=== PATIENT | male | born 1990 | race Caucasian/White ===

== ENCOUNTER → 2018-04-01 | Emergency (ER) | payer SELFPAY ==
[~2018-04-01] MED LIST: ASPIRIN 300 MG SUPP PR ONE; DIAZEPAM 50 MG/10 ML MDV IVP ONE; EMS NS 0.9%(*) 1000 ML BAG 1,000 ML IV ONE; THIAMINE HCL(*) 200 MG/2 ML IN 100 MG, FOLIC ACID(*) 50 MG/10 ML INJ 1 MG, MULTIVITAMIN... IV ONE
--- NOTE | 2018-04-01 11:08 | ER Report ---
History and Physical Time Seen By MD: 11:08 ANJALI/ANGELIC CHIEF COMPLAINT: Altered mental status HISTORY OF PRESENT ILLNESS: 28-year-old male patient presents to emergency room with complaint of altered mental status. Patient has been lost in the wound for several days. At this time we're unsure exactly how long. Patient was found by [employer] [facility] office and brought into the emergency room by EMS. Patient had his family doing a wellness check earlier this week. 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 Patient does respond to painful stimuli, and does state "Hello" and "okay". REVIEW OF SYSTEMS: Unable to review due to patient being unable to answer questions. Past Medical/Surgical History Unable to obtain from patient Reviewed Nurses Notes: Yes Constitutional Vital Sign - Last 24 Hours 04/01/18 04/01/18 04/01/18 04/01/18 11:08 11:10 11:30 11:31 Temp 99.0 Pulse 104 103 Resp 18 17 B/P (MAP) 185/80 (115) 185/80 170/99 (122) Pulse Ox 97 O2 Delivery Room Air 04/01/18 04/01/18 04/01/18 04/01/18 12:00 12:01 12:30 12:30 Pulse 96 115 Resp 14 17 B/P (MAP) 160/99 (119) 173/101 (125) 173/101 (125) Pulse Ox 94 04/01/18 04/01/18 04/01/18 04/01/18 12:31 12:35 12:40 12:45 Pulse 108 103 105 118 Resp 14 15 14 22 Pulse Ox 93 96 100 96 04/01/18 04/01/18 04/01/18 04/01/18 12:50 12:55 13:00 13:05 Pulse ? 115 103 Resp 15 14 16 17 B/P (MAP) 167/94 (118) Pulse Ox 77 94 95 04/01/18 04/01/18 04/01/18 04/01/18 13:10 13:15 13:20 13:25 Pulse 110 101 103 101 Resp 15 14 12 16 Pulse Ox 95 95 94 94 04/01/18 04/01/18 04/01/18 04/01/18 13:30 14:00 14:30 15:00 Pulse 101 105 108 106 Resp 18 15 15 15 B/P (MAP) 153/71 (98) 166/103 (124) 170/97 (121) 173/91 (118) Pulse Ox 94 96 95 95 04/01/18 04/01/18 04/01/18 04/01/18 15:05 15:30 15:35 15:51 Pulse 101 107 Resp 12 16 B/P (MAP) 163/98 (119) 164/102 (122) Pulse Ox 96 94 04/01/18 04/01/18 16:00 16:05 Pulse 98 Resp 15 B/P (MAP) 169/103 (125) Pulse Ox 95 Intake and Output 04/01/18 04/01/18 04/02/18 15:00 23:00 07:00 Intake Total 2000 ml 200 ml Output Total 1200 ml Balance 2000 ml -1000 ml Physical Exam General Appearance: The patient is somnolent, has no immediate need for airway protection and no current signs of toxicity. Eyes: Pupils equal and round no injection, eyes open spontaneously. Respiratory: Chest is non tender, lungs are clear to auscultation. Cardiac: regular rhythm. Patient is tachycardic with image rate of one 4 bpm Gastrointestinal: Abdomen is soft and non tender, no masses, bowel sounds normal. Musculoskeletal: Neck: Neck is supple and non tender. Extremities have full range of motion and are non tender. Skin: No rashes or lesions. Diffuse sunburn over the majority of his body, the only area that this is not covered by sunburn is that protected by his underwear. Feet are dirty. Neuro: Patient already responded to questions with an "okay" or "hello". Patient was moving around. DIFFERENTIAL DIAGNOSIS: After history and physical exam differential diagnosis was considered for altered mental status including but not limited to hypoglycemia, infectious process, electrolyte abnormality, head injury and intoxicants. Medical Decision Making Data Points Result Diagram: 04/01/18 1100 04/01/18 1100 Laboratory Hematology Test 04/01/18 11:00 04/01/18 11:53 04/01/18 12:44 04/01/18 13:56 Red Blood Count 4.70 M/uL (4.00-5.60) Mean Corpuscular Volume 95.2 fL (80.0-96.0) Mean Corpuscular Hemoglobin 33.2 pg (26.0-33.0) Mean Corpuscular Hemoglobin Concent 34.9 g/dL (32.0-36.0) Red Cell Distribution Width 13.3 % (11.5-14.5) Mean Platelet Volume 10.1 fL (7.2-11.1) Neutrophils (%) (Auto) 87.6 % (39.4-72.5) Lymphocytes (%) (Auto) 3.2 % (17.6-49.6) Monocytes (%) (Auto) 9.1 % (4.1-12.4) Eosinophils (%) (Auto) 0.0 % (0.4-6.7) Basophils (%) (Auto) 0.1 % (0.3-1.4) Nucleated RBC Relative Count (auto) 0.0 /100WBC Neutrophils # (Auto) 14.3 K/uL (2.0-7.4) Lymphocytes # (Auto) 0.5 K/uL (1.3-3.6) Monocytes # (Auto) 1.5 K/uL (0.3-1.0) Eosinophils # (Auto) 0.0 K/uL (0.0-0.5) Basophils # (Auto) 0.0 K/uL (0.0-0.1) Nucleated RBC Absolute Count (auto) 0.00 K/uL Prothrombin Time 14.5 seconds (12.0-14.4) Prothromb Time International Ratio 1.12 Activated Partial Thromboplast Time 29 seconds (23-35) Sodium Level 135 mmol/L (137-145) Potassium Level 3.8 mmol/L (3.5-5.0) Chloride Level 95 mmol/L (98-107) Carbon Dioxide Level 15 mmol/L (22-30) Blood Urea Nitrogen 53 mg/dl (9-21) Creatinine 1.20 mg/dl (0.66-1.25) Glomerular Filtration Rate Calc > 60.0 Random Glucose 85 mg/dl (75-110) Calcium Level 10.0 mg/dl (8.4-10.2) Total Bilirubin 1.1 mg/dl (0.2-1.3) Aspartate Amino Transf (AST/SGOT) 276 U/L (0-35) Alanine Aminotransferase (ALT/SGPT) 108 U/L (0-56) Alkaline Phosphatase 112 U/L (0-126) Lactate Dehydrogenase 1778 U/L (0-654) Total Creatine Kinase 6310 U/L (55-170) Creatine Kinase MB 226 U/L Creatine Kinase MB % 4 % Total Protein 7.7 gm/dl (6.3-8.2) Albumin 4.7 g/dl (3.5-5.0) Serum Alcohol < 10 mg/dl Urine Color Yellow Urine Clarity Clear Urine pH 5.0 pH (4.8-9.5) Urine Specific [place] 1.023 Urine Protein 30 mg/dL (NEGATIVE) Urine Glucose (UA) Negative mg/dL (NEGATIVE) Urine Ketones 80 mg/dL (NEGATIVE) Urine Blood Large (NEGATIVE) Urine Nitrite Negative (NEGATIVE) Urine Bilirubin Negative (NEGATIVE) Urine Urobilinogen Negative mg/dL (0.2-1.9) Urine Leukocyte Esterase Negative (NEGATIVE) Urine RBC 1 /HPF (0-2/HPF) Urine WBC 1 /HPF (0-5/HPF) Urine Squamous Epithelial Cells None /LPF (NONE-FEW) Urine Bacteria Negative /HPF (NONE-FEW) Urine Hyaline Casts Few /LPF (NONE-FEW) Urine Mucus None /HPF (NONE-FEW) Urine Opiates Screen Positive Urine Barbiturates Screen Negative Ur Tricyclic Antidepressants Screen Negative Urine Phencyclidine Screen Negative Urine Amphetamines Screen Positive Urine Benzodiazepines Screen Negative Urine Cocaine Screen Negative Urine Cannabinoids Screen Negative Blood Gas Puncture Site Left radial Blood Gas Patient Temperature 99.0 DEGREES Arterial Blood pH 7.40 (7.35-7.45) Arterial Blood Partial Pressure CO2 < 25 mmHg (32-37) Arterial Blood Partial Pressure O2 61 mmHg (60-80) Arterial Blood HCO3 13 mmol/L (20-26) Arterial Blood Oxygen Saturation 92 % (92-100) Arterial Blood Base Excess -12.0 mmol/L Mauricio Test Acceptable Oxygen Liters/Minute Room air Lactate 1.3 mmol/L (0.7-2.1) Ammonia 16 UMOL/L (9-33) Troponin I 0.137 ng/ml Chemistry Test 04/01/18 11:00 04/01/18 11:53 04/01/18 12:44 04/01/18 13:56 White Blood Count 16.3 k/uL (4.5-11.0) Red Blood Count 4.70 M/uL (4.00-5.60) Hemoglobin 15.6 g/dL (14.0-18.0) Hematocrit 44.7 % (42.0-52.0) Mean Corpuscular Volume 95.2 fL (80.0-96.0) Mean Corpuscular Hemoglobin 33.2 pg (26.0-33.0) Mean Corpuscular Hemoglobin Concent 34.9 g/dL (32.0-36.0) Red Cell Distribution Width 13.3 % (11.5-14.5) Platelet Count 345 K/uL (150-450) Mean Platelet Volume 10.1 fL (7.2-11.1) Neutrophils (%) (Auto) 87.6 % (39.4-72.5) Lymphocytes (%) (Auto) 3.2 % (17.6-49.6) Monocytes (%) (Auto) 9.1 % (4.1-12.4) Eosinophils (%) (Auto) 0.0 % (0.4-6.7) Basophils (%) (Auto) 0.1 % (0.3-1.4) Nucleated RBC Relative Count (auto) 0.0 /100WBC Neutrophils # (Auto) 14.3 K/uL (2.0-7.4) Lymphocytes # (Auto) 0.5 K/uL (1.3-3.6) Monocytes # (Auto) 1.5 K/uL (0.3-1.0) Eosinophils # (Auto) 0.0 K/uL (0.0-0.5) Basophils # (Auto) 0.0 K/uL (0.0-0.1) Nucleated RBC Absolute Count (auto) 0.00 K/uL Prothrombin Time 14.5 seconds (12.0-14.4) Prothromb Time International Ratio 1.12 Activated Partial Thromboplast Time 29 seconds (23-35) Glomerular Filtration Rate Calc > 60.0 Calcium Level 10.0 mg/dl (8.4-10.2) Total Bilirubin 1.1 mg/dl (0.2-1.3) Aspartate Amino Transf (AST/SGOT) 276 U/L (0-35) Alanine Aminotransferase (ALT/SGPT) 108 U/L (0-56) Alkaline Phosphatase 112 U/L (0-126) Lactate Dehydrogenase 1778 U/L (0-654) Total Creatine Kinase 6310 U/L (55-170) Creatine Kinase MB 226 U/L Creatine Kinase MB % 4 % Total Protein 7.7 gm/dl (6.3-8.2) Albumin 4.7 g/dl (3.5-5.0) Serum Alcohol < 10 mg/dl Urine Color Yellow Urine Clarity Clear Urine pH 5.0 pH (4.8-9.5) Urine Specific [place] 1.023 Urine Protein 30 mg/dL (NEGATIVE) Urine Glucose (UA) Negative mg/dL (NEGATIVE) Urine Ketones 80 mg/dL (NEGATIVE) Urine Blood Large (NEGATIVE) Urine Nitrite Negative (NEGATIVE) Urine Bilirubin Negative (NEGATIVE) Urine Urobilinogen Negative mg/dL (0.2-1.9) Urine Leukocyte Esterase Negative (NEGATIVE) Urine RBC 1 /HPF (0-2/HPF) Urine WBC 1 /HPF (0-5/HPF) Urine Squamous Epithelial Cells None /LPF (NONE-FEW) Urine Bacteria Negative /HPF (NONE-FEW) Urine Hyaline Casts Few /LPF (NONE-FEW) Urine Mucus None /HPF (NONE-FEW) Urine Opiates Screen Positive Urine Barbiturates Screen Negative Ur Tricyclic Antidepressants Screen Negative Urine Phencyclidine Screen Negative Urine Amphetamines Screen Positive Urine Benzodiazepines Screen Negative Urine Cocaine Screen Negative Urine Cannabinoids Screen Negative Blood Gas Puncture Site Left radial Blood Gas Patient Temperature 99.0 DEGREES Arterial Blood pH 7.40 (7.35-7.45) Arterial Blood Partial Pressure CO2 < 25 mmHg (32-37) Arterial Blood Partial Pressure O2 61 mmHg (60-80) Arterial Blood HCO3 13 mmol/L (20-26) Arterial Blood Oxygen Saturation 92 % (92-100) Arterial Blood Base Excess -12.0 mmol/L Mauricio Test Acceptable Oxygen Liters/Minute Room air Lactate 1.3 mmol/L (0.7-2.1) Ammonia 16 UMOL/L (9-33) Troponin I 0.137 ng/ml Coagulation Test 04/01/18 11:00 Prothrombin Time 14.5 seconds Prothromb Time International Ratio 1.12 Activated Partial Thromboplast Time 29 seconds Toxicology Test 04/01/18 11:00 04/01/18 11:53 Serum Alcohol < 10 mg/dl Urine Opiates Screen Positive Urine Barbiturates Screen Negative Ur Tricyclic Antidepressants Screen Negative Urine Phencyclidine Screen Negative Urine Amphetamines Screen Positive Urine Benzodiazepines Screen Negative Urine Cocaine Screen Negative Urine Cannabinoids Screen Negative Urinalysis Test 04/01/18 11:53 Urine Color Yellow Urine Clarity Clear Urine pH 5.0 pH (4.8-9.5) Urine Specific [place] 1.023 Urine Protein 30 mg/dL (NEGATIVE) Urine Glucose (UA) Negative mg/dL (NEGATIVE) Urine Ketones 80 mg/dL (NEGATIVE) Urine Blood Large (NEGATIVE) Urine Nitrite Negative (NEGATIVE) Urine Bilirubin Negative (NEGATIVE) Urine Urobilinogen Negative mg/dL (0.2-1.9) Urine Leukocyte Esterase Negative (NEGATIVE) Urine RBC 1 /HPF (0-2/HPF) Urine WBC 1 /HPF (0-5/HPF) Urine Squamous Epithelial Cells None /LPF (NONE-FEW) Urine Bacteria Negative /HPF (NONE-FEW) Urine Hyaline Casts Few /LPF (NONE-FEW) Urine Mucus None /HPF (NONE-FEW) EKG/Imaging EKG Interpretation 12 lead EKG: Rhythm: Sinus tachycardia [place]: normal QRS: Left ventricular hypertrophy, incomplete right bundle branch block ST segments: normal Imaging INDICATION: lost in [place] for 10 days. Reportedly lost in the [place] for 10 days. DATE: 04/01/2018 12:45 PM. TECHNIQUE: CHEST SINGLE AP COMPARISON: None FINDINGS: Heart size is normal. No effusion, consolidation, or pneumothorax. Normal expansion. IMPRESSION: No acute findings. Report Dictated By: Desmond Young MD at 04/01/2018 12:45 PM Report E-Signed By: Desmond Young MD at 04/01/2018 12:48 PM ED Course/Re-evaluation ED Course Patient was admitted to exam room, history and physical were obtained. Differential diagnoses were considered. On examination patient would respond to only a few questions. His response was "hello" and "okay". Patient has significant sunburn over the majority of his body, biliary but does not sunburn his ear protected by his underwear. Patient has an elevated heart rate approximately 104 bpm. A CBC, CMP, troponin, EKG, chest x-ray, CT scan of the head, alcohol level, drug screen, urinalysis were done. CBC showed an elevated white count of 16,000, patient had a low sodium, low chloride, elevated liver enzymes, elevated BUN, troponin was positive at 0.15, EKG showed a sinus tachycardia with right bundle branch block and left ventricular hypertrophy. Chest x-ray showed no acute cardiopulmonary processes, alcohol level is negative , drug treatment was positive for methamphetamines as well as opiates. Urinalysis showed large blood, only one red blood cell. A CPK was done which was elevated at 6100. Due to the elevated troponin a CPK-MB was done which was at 4%. In discussing the case that it was this patient could very well have ingested mushrooms which were poisonous. I discussed the case with Dr. Oliva, hospitalist at [facility], who agreed to accept the patient for admission. At the time of this dictation we are still waiting for the CT scan of the head to be read as well as an echocardiogram to be officially. Dr. Oliva did request that I speak with poison control. They were contacted, case number is [id number], and they recommended supportive treatment for possible ingestion of a poisonous mushroom. After discussing the case with Dr. Oliva the police did arrive, they have spoke with the patient's mother. Apparently he has a drug history and heroin and methamphetamines are his drugs of choice. He also had an episode where he was running around [place] 3 months ago wearing just his underwear jumping on cars. There is concerned that this may be a psychosis related to that. They believe that [place] The last time they know that he was seen was on Saturday, which time he was pacing around the hotel in which he was staying. Still with the elevated troponin I believe the patient is necessitating transfer to a higher level of care. Dr. Oliva was contacted and informed of the results of the repeat troponin as well as the updated history. I did speak with the patient's mother, Viktoriya Gray [phone], who verbalized understanding and agreement with plan to transfer patient. Decision to Disposition Date: Apr 01, 2018 Decision to Disposition Time: 13:34 Depart Departure Latest Vital Signs Vital Signs Date Time Temp Pulse Resp B/P (MAP) Pulse Ox O2 Delivery O2 Flow Rate FiO2 04/01/18 16:05 98 15 95 04/01/18 16:00 169/103 (125) 04/01/18 11:10 99.0 Room Air Impression: Primary Impression: Altered mental status Additional Impressions: Elevated troponin Elevated liver enzymes Dehydration Condition: Condition Unchanged Disposition: XFER TO [facility] Problem Qualifiers Primary Impression: Altered mental status Altered mental status type: phil Qualified Codes: R40.1 - BENSON Kwong Apr 01, 2018 11:08
[2018-04-01] MEDS: NS(*) 0.9% 1000 ML BAG 1,000 ML IV ONE ×2 (11:25→16:00)
[2018-04-01 11:49] LABS: PLATELET COUNT, AUTOMATED 345 K/uL (150-450)
--- NOTE | 2018-04-01 11:51 | EKG ---
FACILITY: [facility] PATIENT NAME: JULIANA ROBERTS : [id number] MR: [id number] V: [id number] EXAM DATE: ORDERING PHYSICIAN: BENSON CORTEZ TECHNOLOGIST: ROSS De La O Reason : Blood Pressure : / mmHG Vent. Rate : 103 BPM Atrial Rate : 103 BPM P-R Int : 148 ms QRS Dur : 106 ms QT Int : 394 ms P-R-T Axes : 075 067 068 degrees QTc Int : 516 ms Sinus tachycardia Possible Left atrial enlargement Incomplete right bundle branch block Borderline ECG QTc prolonged No previous ECGs available Confirmed by KARI MARQUEZ ([id number]) on 04/03/2018 11:02:29 AM Referred By: Confirmed By:KARI MARQUEZ
--- NOTE | 2018-04-01 12:52 | RADIOLOGY IMAGING REPORT ---
[place] [facility] [place] NAME: Lurdes Turner : 1990 MR: [id number] V: [id number] EXAM DATE: ORDERING PHYSICIAN: BENSON CORTEZ TECHNOLOGIST: Location: [facility] Patient: Lurdes Turner : 1990 Visit/Account:[id number] Date of Sevice: 04/01/2018 INDICATION: lost in [place] for 10 days. Reportedly lost in the [place] for 10 days. DATE: 04/01/2018 12:45 PM. TECHNIQUE: CHEST SINGLE AP COMPARISON: None FINDINGS: Heart size is normal. No effusion, consolidation, or pneumothorax. Normal expansion. IMPRESSION: No acute findings. Report Dictated By: Desmond Young MD at 04/01/2018 12:45 PM Report E-Signed By: Desmond Young MD at 04/01/2018 12:48 PM WSN:[id number]
[2018-04-01 13:27] LABS: INR 1.12
--- NOTE | 2018-04-01 14:31 | RADIOLOGY IMAGING REPORT ---
FACILITY: [facility] [place] PATIENT NAME: Lurdes Turner : 1990 MR: [id number] V: [id number] EXAM DATE: ORDERING PHYSICIAN: BENSON CORTEZ TECHNOLOGIST: Location: [facility] Patient: Lurdes Turner : 1990 Visit/Account:[id number] Date of Sevice: 04/01/2018 EXAMINATION: Head CT without intravenous contrast HISTORY: Lost in the [place] for 10 days TECHNIQUE: Contiguous axial images were obtained from the skull base to the vertex without intraven ous contrast. Sagittal and coronal reformatted images are also submitted. Dose Lowering Technique One of the following dose optimization techniques was utilized in the performance of this exam: Autom ated exposure control; adjustment of the mA and/or kV according to the patient's size; or use of an i terative reconstruction technique. Specific details can be referenced in the facility's radiology C T exam operational policy. COMPARISON: None. FINDINGS: Brain volume: Normal. Ventricles: Normal. Acute ischemic changes: None. Hemorrhage: None. Masses / edema: None. Hitchcock-white: Negative. White matter: Normal. Vessels: Negative. Extra-axial: Negative. Calvarium / scalp: Negative. Skull base / visualized face: Negative. Visualized sinuses / orbits: There is a small mucous retention cyst in the right maxillary sinus and mild mucosal thickening inferior aspect left maxillary sinus IMPRESSION: Normal noncontrast head CT without evidence of mass lesion, acute infarct or hemorrhage. Other than mucus retention cyst right maxillary sinus and mild mucosal thickening inferior aspect left maxillary sinus Report Dictated By: Cami Rice MD at 04/01/2018 2:27 PM Report E-Signed By: Cami Rice MD at 04/01/2018 2:28 PM WSN:[id number]
[2018-04-01 16:00] VITALS: BP 169/103
== END ==
LOC: ER 11:02
DX: R41.82 Altered mental status, unspecified (principal); R79.89 Other specified abnormal findings of blood chemistry; E86.0 Dehydration
CPT/HCPCS: 36415; 36600; 70450; 71045; 80305; 80320; 81001; 82140; 82550; 82553; 82803; 83605; 83615; 84484; 85025; 85610; 85730; 93005; 93306; 96365; 96366; 96375; 99284; C1758; J3360; J3411; J3475; J7030; 82040; 82247; 82310; 82374; 82435; 82565; 82947; 84075; 84132; 84155; 84295; 84450; 84460; 84520

== ENCOUNTER → 2018-04-01 | Outpatient (CLI) | payer SELFPAY | LOC: AMB 10:16 | PROVIDERS: ATTEND Nurse Practitioner | DX: R41.82 Altered mental status, unspecified (principal); L55.0 Sunburn of first degree; E86.0 Dehydration; F44.89 Other dissociative and conversion disorders; T14.8XXA Other injury of unspecified body region, initial encounter; X58.XXXA Exposure to other specified factors, initial encounter | CPT/HCPCS: A0425; A0427 ==

== ENCOUNTER → 2018-04-01 | Outpatient (CLI) | payer SELFPAY | LOC: AMB 16:01 | PROVIDERS: ATTEND Nurse Practitioner | DX: R41.82 Altered mental status, unspecified (principal); E86.0 Dehydration; R79.89 Other specified abnormal findings of blood chemistry | CPT/HCPCS: A0425; A0426 ==